=== PATIENT | male | born 1990 | race Caucasian/White ===

== ENCOUNTER 2017-10-26 13:23 | Inpatient (IN) ==
[2017-10-26] MEDS ORDERED: 0.9 % Sodium Chloride 1,000 ML IVC ONE (14:07)
[2017-10-26] MEDS ORDERED: Hyoscyamine SL 0.125 MG TAB.SUBL SL STA (14:08)
--- NOTE | 2017-10-26 14:19 | Emergency Department Note ---
Disposition Clinical Impression: Pancreatitis Qualifiers: Chronicity: acute Pancreatitis type: other Acute pancreatitis complication: no infection or necrosis Qualified Code(s): K85.80 - Other acute pancreatitis without necrosis or infection Disposition: Admitted As Inpatient Referrals: NONE,PCP [Primary Care Provider] - Forms: ED Satisfaction Letter, Work/School Release Time of Disposition: 16:36 Abdominal Pain HPI - General Chief Complaint: ED Abdominal Pain Stated Complaint: abd pain/NV Time Seen by Provider: 10/26/17 13:50 Source: patient Nursing Notes Reviewed: Yes Vital Signs Reviewed: Yes - History of Present Illness HPI Narrative: History of present illness: 27-year-old male history of bipolar disorder who presents with abdominal cramping going from the primary medical to the epigastric area with nausea and vomiting since last night. Was seen at [facility] yesterday this at the [facility] and sent him home. Having persistent symptoms here for further evaluation. Denies diarrhea or dysuria. Denies fever or chills. Denies shortness of breath or chest pain. Denies ill contacts exotic food or travel. No medication changes. WE ARE Obtaining release of information from Pain Scale: 10 - Related Data Allergies Allergy/AdvReac Type Severity Reaction Status Date / Time Penicillins Allergy Hives Verified 10/26/17 13:41 All systems ED: reviewed and negative except as stated. Gastrointestinal: Reports: abdominal pain, nausea, vomiting Abdominal Pain PMH - Past Medical History Medical history: Reports: no medical history Male Surgical History: Reports: appendectomy, Tonsillectomy Psychiatric history: Reports: anxiety, bipolar, depression, PTSD, prior suicide attempt, previous psychiatric hospitalization - Social History Smoking status: Former smoker Alcohol use: Reports: none Drug use: Reports: none Physical Exam - General Limitations: no limitations General appearance: alert, in distress - Head Head exam: atraumatic, normocephalic - Eye Eye exam: Present: normal appearance, PERRL, EOMI - ENT ENT exam: normal exam, normal oropharynx - Neck Neck exam: Present: normal inspection, full ROM - Chest Chest inspection: Present: normal inspection, symmetric chest wall rise - Respiratory Respiratory exam: Present: normal lung sounds bilaterally - Cardiovascular Cardiovascular exam: Present: regular rate, normal rhythm - Abdominal Exam Abdominal exam: Present: soft, Non-Tender - Extremities Exam Extremities exam: Present: normal inspection, full ROM - Expanded Lower Extremity Exam Neurovascular/Tendon exam: Present: normal capillary refill Gait: observed and normal - Back Exam Back exam: Present: normal inspection, full ROM - Neurological Exam Neurological exam: Present: alert, oriented X3 - Psychiatric Psychiatric exam: Present: normal affect, normal mood Course - Reevaluation(s) Reevaluation #1: Patient appears to have nausea vomiting one small bowel movement abdominal examination is surgically benign. Patient getting IV normal saline subungual Levsin IV Zofran. We will check on his last ED visit [facility]. Disposition pending. Time: 14:21 Reevaluation #2: I have reviewed the information from [facility] ED visit. She was discharged home without incident lab values were within normal limits no imaging was performed. She getting a noncontrast abdominal pelvic CT and received 1 mg parenteral Dilaudid and Zofran. Disposition pending. Time: 15:39 Reevaluation #3: Workup has been completed. Abdominal pelvic CT without contrast read by radiology as acute pancreatitis with extensive inflammation in the peripancreatic area but no pseudocyst formation. Patient and family members present so informed. Hospitalist has been paged admission anticipated disposition pending Time: 16:35 - Consultations Consultation #1: Discussed case with the hospitalist Dr. CALVILLO, patient' accepted for admission in stable condition Time: 16:36 Vital Signs Temperature 98 F 10/26/17 13:42 Pulse Rate 51 10/26/17 13:42 Respiratory Rate 20 10/26/17 13:42 Blood Pressure 152/91 10/26/17 13:42 O2 Sat by Pulse Oximetry 97 10/26/17 13:42 Temperature 98 F 10/26/17 13:42 Pulse Rate 51 10/26/17 13:42 Respiratory Rate 20 10/26/17 13:42 Blood Pressure 152/91 10/26/17 13:42 O2 Sat by Pulse Oximetry 97 10/26/17 13:42 Oxygen Delivery Oxygen Delivery Room Air Abdominal Pain - Lab Data Result diagrams: 10/26/17 14:28 10/26/17 14:28 Lab Results 10/26/17 10/26/17 Range/Units 14:28 14:28 WBC 12.6 H (4.3-11.1) K/mcL RBC 5.50 (4.19-5.50) M/mcL Hgb 16.6 (12.9-16.9) g/dL Hct 48.7 (37.5-50.1) % MCV 88.5 (83.0-100.0) fL MCH 30.2 (28.0-33.3) pg MCHC 34.1 (31.6-35.5) g/dL RDW 12.8 (11.5-14.5) % Plt Count 249 (140-400) K/mcL MPV 9.9 (9.4-12.4) fL Immature Gran % 0.2 (0-4) % Seg Neutrophils % 83.8 % Lymphocytes % 5.3 % Monocytes % 10.3 % Eosinophils % 0.2 % Basophils % 0.2 % Neutrophils # 10.5 H (1.6-8.9) K/mcL Lymphocytes # 0.7 (0.6-4.6) K/mcL Monocytes # 1.3 (0.0-1.3) K/mcL Eosinophils # 0.0 (0.0-0.6) K/mcL Basophils # 0.0 (0.0-0.2) K/mcL Sodium 139 (136-145) mEq/L Potassium 4.0 (3.5-5.1) mEq/L Chloride 105 (98-107) mEq/L Carbon Dioxide 27 (23-29) mEq/L BUN 9 (6-20) mg/dL Creatinine 0.91 (0.70-1.30) mg/dL Est GFR ( Amer) > 60 (> 60) Est GFR (Non-Af Amer) > 60 (> 60) BUN/Creatinine Ratio 10 (6-26) Glucose 127 H (70-105) mg/dL Calculated Osmolality 288 (280-300) Calcium 9.2 (8.6-10.3) mg/dL
[2017-10-26 14:43] LABS: Basophils % 0.2 %; Eosinophils % 0.2 %; Hematocrit 48.7 % (37.5-50.1); Hemoglobin 16.6 g/dL (12.9-16.9); Immature Granulocytes % 0.2 % (0-4); Lymphocytes # 0.7 K/mcL (0.6-4.6); Lymphocytes % 5.3 %; Mean Corpuscular HGB Conc 34.1 g/dL (31.6-35.5); Mean Corpuscular Hemoglobin 30.2 pg (28.0-33.3); Mean Corpuscular Volume 88.5 fL (83.0-100.0); Mean Platelet Volume 9.9 fL (9.4-12.4); Monocytes # 1.3 K/mcL (0.0-1.3); Monocytes % 10.3 %; Neutrophils # 10.5 K/mcL (1.6-8.9); Platelet Count 249 K/mcL (140-400); Red Cell Distribution Width 12.8 % (11.5-14.5); Segmented Neutrophils % 83.8 %
[2017-10-26 14:51] LABS: BUN/Creatinine Ratio 10 (6-26); Blood Urea Nitrogen 9 mg/dL (6-20); Calcium 9.2 mg/dL (8.6-10.3); Carbon Dioxide 27 mEq/L (23-29); Chloride 105 mEq/L (98-107); Glucose 127 mg/dL (70-105); Osmolality,Calculated 288 (280-300); Sodium 139 mEq/L (136-145); eGFR For African Americans > 60 (> 60); eGFR For Non-African Americans > 60 (> 60)
[2017-10-26] MEDS ORDERED: *HR* HYDROmorphone (PF) 1 MG/ML SYRINGE IVP ONE ×3 (15:14→19:45)
[2017-10-26] MEDS ORDERED: Ondansetron 4 MG/2 ML VIAL IVP ONE (15:14)
[2017-10-26 17:28] LABS: Lipase > 1800 Units/L (11-82)
[2017-10-26] MEDS ORDERED: *HR* HYDROmorphone (PF) 1 MG/ML SYRINGE IVP PRN (19:44)
[2017-10-26] MEDS ORDERED: Ondansetron 4 MG/2 ML VIAL IVP PRN (19:44)
[2017-10-26] MEDS ORDERED: Naloxone 0.4 MG/ML INJ IVP PRN (19:44)
[2017-10-26] MEDS ORDERED: 0.9 % Sodium Chloride 1,000 ML IVC SCH (20:00)
--- NOTE | 2017-10-26 20:00 | Internal Med History&Physical ---
<Carlin Yao - Last Filed: 10/26/17 19:55> Date of Encounter: 10/26/17 Time of Encounter: 19:55 Assessment and Plan (1) Pancreatitis Current visit: Yes Status: Acute Presents today with N/V, and abdominal pain. Lipase greater than 3x normal upper limits. CT abdomen revealed a severely inflamed pancreas. He is hemodynamically stable. Denies any ETOH abuse, no prior h/o cholelithiasis, no autoimmune disorders, liver enzymes unremarkable. He is being admitted to inpatient with acute pancreatitis. -GI consult-order placed, no GI service for consult until Saturday. Patient has risks for hereditary pancreatitis. -check triglycerides, and lipase in the am -IVF 0.9% NS at 150ml/hr -RUQ US -CBCD, CMP in the am -Continuous tele, and Spo2 monitoring -NPO -pain management with Morphine 2mg Q2hrs PRN Qualifiers: Chronicity: acute Pancreatitis type: other Acute pancreatitis complication: no infection or necrosis Qualified Code(s): K85.80 - Other acute pancreatitis without necrosis or infection (2) Sinus bradycardia Current visit: Yes Status: Acute Sinus bradycardia of unknown etiology. He states that his pulse is always low in the 50's. He is asymptomatic and hemodynamically stable. He is to remain on telemetry monitoring. (3) DVT prophylaxis Current visit: Yes Status: Acute EPCD's Internal Medicine - H&P: HPI Chief complaint: N/V and abdominal pain Admitted From: Home Plans for Post Hospital Care: Home History of present illness: Mr. Herrera is a 27 year old male with only anxiety, bipolar and depression. Who presents to [facility] today with severe abdominal pain and N/V. He denies any ETOH abuse, or illicit drug use. He reports that the abdominal pain and vomiting began last night. The patient reports that he was at [facility] yesterday and was diagnosed with viral gastroenteritis and sent home. His symptoms have persisted and worsened from yesterday evening until this time of arrival to the ED today. He denies any fevers, chills, shortness of breath, chest pain, diarrhea or back pain. He denies any ill contacts, exotic food or travel. Workup in the ED found leukocytosis at 12.6 and an elevated lipase of 1800. CT of abdomen was obtained and found severe inflammation of the pancreas. Past Med Surg Social Fam HX - Past Medical History Medical history: no medical history Psychiatric history: anxiety, bipolar, depression, PTSD, prior suicide attempt, previous psychiatric hospitalization - Social History Smoking Status: Former smoker Smokeless Tobacco Status: No Alcohol use: none Drug use: none - Family History Mother Hx Family GI Disorders: Yes (pancreatitis) - Additional Family History Additional family history: Noncontributory Internal Medicine - H&P: Meds 3 Allergy/AdvReac Type Severity Reaction Status Date / Time Penicillins Allergy Hives Verified 10/26/17 13:41 All Systems PM: A 10-system review of systems was performed and is negative for pertinent findings except as documented above in the HPI. - Constitutional Constitutional: as per HPI - Cardiovascular Cardiovascular ROS IM: no chest pain, no diaphoresis, no dyspnea, no lightheadedness, no palpitations, no syncope - Respiratory Respiratory: no cough, no dyspnea, no wheezing, no excessive phlegm production - Gastrointestinal Gastrointestinal: as per HPI - Integumentary Integumentary IM: no rash, no unusual bruising - Neurological Neurological ROS: no confusion, no convulsions, no focal weakness, no numbness, no tingling, no tremor(s) - Psychiatric Psychiatric: anxiety - Constitutional Vitals: Temp Pulse Resp BP Pulse Ox 98 F 50 14 147/89 98 10/26/17 13:42 10/26/17 19:00 10/26/17 19:49 10/26/17 19:49 10/26/17 19:00 General appearance: Present: cooperative, mild distress, A&O X 3, answers questions appropriately - Head Head exam: Present: atraumatic, normocephalic - Neck Neck exam general surgery: Present: supple, trachea midline. Absent: lymphadenopathy - Respiratory Respiratory exam: Present: CTAB. Absent: accessory muscle use, rales, rhonchi, wheezes - Cardiovascular Cardiovascular exam: Present: +S1, +S2. Absent: bradycardia, systolic murmur - GI/Abdominal GI/Abdominal exam: Present: tenderness. Absent: firm, guarding, rebound - Extremities Exam Extremities exam: Present: warm, radial pulses palpable and symmetrical. Absent : calf tenderness, cyanotic, pedal edema - Neurological Exam Neurological exam: Present: normal gait, oriented X3. Absent: facial droop, speech deficit - Skin Skin exam: Present: dry, intact Internal Med - H&P Results - Labs CBC & Chem 7: 10/26/17 14:28 10/26/17 14:28 - Diagnostic Studies CT scan - abdomen Status: image reviewed by me Additional comments: Acute appendicitis with no pseudocyst or abscess. Severe inflammatory changes are seen around the pancreas in the upper abdomen. <Zelda Fallon - Last Filed: 10/26/17 20:55> Date of Encounter: 10/26/17 Internal Medicine - H&P: HPI History of present illness: Mr. Herrera is a 27 year old male All Systems PM: A 10-system review of systems was performed and is negative for pertinent findings except as documented above in the HPI. - Constitutional Vitals: Temp Pulse Resp BP Pulse Ox 98.4 F 53 14 143/92 94 10/26/17 20:31 10/26/17 20:31 10/26/17 20:31 10/26/17 20:31 10/26/17 20:31 Internal Med - H&P Results - Labs CBC & Chem 7: 10/26/17 14:28 10/26/17 14:28 - Attending Attestation I have personally performed a face to face evaluation on this patient. I have reviewed and agree with the care plan. History and Exam by me shows: 27 yo male with abdo pain along epigastric region, RUQ, Rmiddle quad pain, radiation to the back, worse with food, associated n/v, no diarrhea Denies alcohol or triglycerides IMPRESSION: Acute appendicitis with no pseudocyst or abscess. Severe inflammatory changes are seen around the pancreas in the upper abdomen. D/ / Bay Carmichael MD / Bay Carmichael MD Interpreting Provider: Bay Carmichael MD NDUM: Speech recognition error in the impression. The impression should read acute pancreatitis. A/P Acute pancreatitis - LFT wnl, does not sound like gallstones but will check RUQ US - denies alcohol - check triglyceride - IVF, IV pain med - consult GI, if all negative, consider work up for hereditary pancreatitis. Hx of early age pancreatitis in mother
[2017-10-26] MEDS: 0.9 % Sodium Chloride 1,000 ML IVC SCH (20:53)
[2017-10-26] MEDS: *HR* Morphine 2 MG/ML SYRINGE IVP PRN (21:38)
[2017-10-27] MEDS: *HR* Morphine 2 MG/ML SYRINGE IVP PRN ×8 (01:18→23:22)
[2017-10-27] MEDS: 0.9 % Sodium Chloride 1,000 ML IVC SCH ×3 (03:43→19:51)
[2017-10-27 06:39] LABS: Basophils % 0.1 %; Eosinophils # 0.1 K/mcL (0.0-0.6); Eosinophils % 0.6 %; Hematocrit 49.2 % (37.5-50.1); Hemoglobin 16.2 g/dL (12.9-16.9); Immature Granulocytes % 0.3 % (0-4); Lymphocytes # 1.2 K/mcL (0.6-4.6); Mean Corpuscular HGB Conc 32.9 g/dL (31.6-35.5); Mean Corpuscular Volume 91.1 fL (83.0-100.0); Mean Platelet Volume 10.2 fL (9.4-12.4); Monocytes # 1.6 K/mcL (0.0-1.3); Monocytes % 10.7 %; Platelet Count 247 K/mcL (140-400); Red Cell Distribution Width 13.1 % (11.5-14.5); Segmented Neutrophils % 80.3 %
[2017-10-27 09:19] LABS: BUN/Creatinine Ratio 9 (6-26); Blood Urea Nitrogen 8 mg/dL (6-20); Calcium 8.5 mg/dL (8.6-10.3); Carbon Dioxide 29 mEq/L (23-29); Chloride 105 mEq/L (98-107); Glucose 100 mg/dL (70-105); Lipase > 1800 Units/L (11-82); Osmolality,Calculated 290 (280-300); Potassium 4.1 mEq/L (3.5-5.1); Sodium 141 mEq/L (136-145); eGFR For African Americans > 60 (> 60); eGFR For Non-African Americans > 60 (> 60)
[2017-10-27] MEDS: Ondansetron 4 MG/2 ML VIAL IVP SCH ×3 (15:11→23:22)
--- NOTE | 2017-10-27 16:04 | Internal Med Progress Note ---
Date of Encounter: 10/27/17 Time of Encounter: 16:01 - Assessment and plan (1) Pancreatitis Current Visit: Yes Status: Acute Assessment and plan: Presents today with N/V, and abdominal pain. Lipase greater than 3x normal upper limits. CT abdomen revealed a severely inflamed pancreas. He is hemodynamically stable. Denies any ETOH abuse, no prior h/o cholelithiasis, no autoimmune disorders, liver enzymes, triglycerides unremarkable. Cont aggressive IV fluids, NPO. IV pain and nausea control. GI consulted. ABD US pending Qualifiers: Chronicity: acute Pancreatitis type: other Acute pancreatitis complication: no infection or necrosis Qualified Code(s): K85.80 - Other acute pancreatitis without necrosis or infection (2) DVT prophylaxis Current Visit: Yes Status: Acute Assessment and plan: lovenox - Subjective Interval history: Seen and examined at bedside, patient is new to me. Information obtained from chart review and patient report. Patient still very uncomfortable and complains of abdominal pain however slightly improved from yesterday. Still with intermittent nausea, no emesis. - Constitutional Vitals: Temp Pulse Resp BP Pulse Ox 98.1 F 86 16 113/75 92 10/27/17 15:28 10/27/17 15:28 10/27/17 15:28 10/27/17 15:28 10/27/17 15:28 General appearance: Present: cooperative, mild distress, A&O X 3, answers questions appropriately - Head Head exam: Present: atraumatic, normocephalic - Eye Eye exam: Present: PERRL, conjuntiva pink, sclera anicteric Pupils: Present: PERRL - Neck Neck exam general surgery: Present: supple, trachea midline. Absent: lymphadenopathy - Respiratory Respiratory exam: Present: CTAB. Absent: accessory muscle use, rales, rhonchi, wheezes - Cardiovascular Cardiovascular exam: Present: RRR, +S1, +S2. Absent: diastolic murmur, gallop, rubs, systolic murmur - GI/Abdominal GI/Abdominal exam: Present: normal bowel sounds, soft, tenderness, no peritoneal signs. Absent: distended - Extremities Exam Extremities exam: Present: warm, radial pulses palpable and symmetrical. Absent : calf tenderness, cyanotic, pedal edema - Neurological Exam Neurological exam: Present: CN II-XII intact, oriented X3, no focal deficits. Absent: pronater drift, facial droop, speech deficit - Skin Skin exam: Present: dry, intact Internal Medicine: Result - Labs CBC & Chem 7: 10/27/17 05:47 10/27/17 05:47 Consult Discharge Plan - Plan Referrals: NONE,PCP [Primary Care Provider] -
[2017-10-28] MEDS: *HR* Morphine 2 MG/ML SYRINGE IVP PRN ×7 (02:27→23:56)
[2017-10-28] MEDS: 0.9 % Sodium Chloride 1,000 ML IVC SCH ×3 (02:32→20:29)
[2017-10-28] MEDS: Ondansetron 4 MG/2 ML VIAL IVP SCH ×5 (03:47→20:25)
[2017-10-28] MEDS: Acetaminophen 325 MG TABLET PO PRN (03:47)
[2017-10-28 05:01] LABS: Hematocrit 44.1 % (37.5-50.1); Mean Corpuscular HGB Conc 32.9 g/dL (31.6-35.5); Mean Corpuscular Hemoglobin 29.8 pg (28.0-33.3); Mean Corpuscular Volume 90.7 fL (83.0-100.0); Mean Platelet Volume 10.6 fL (9.4-12.4); Platelet Count 215 K/mcL (140-400); Red Blood Count 4.86 M/mcL (4.19-5.50)
[2017-10-28] MEDS: *HR* Enoxaparin 40 MG/0.4 ML SYRINGE SQ SCH (05:07)
[2017-10-28 05:08] LABS: Hemoglobin 14.5 g/dL (12.9-16.9)
[2017-10-28 05:19] LABS: BUN/Creatinine Ratio 9 (6-26); Blood Urea Nitrogen 8 mg/dL (6-20); Calcium 7.9 mg/dL (8.6-10.3); Carbon Dioxide 28 mEq/L (23-29); Chloride 104 mEq/L (98-107); Glucose 99 mg/dL (70-105); Lipase 493 Units/L (11-82); Osmolality,Calculated 286 (280-300); Potassium 3.5 mEq/L (3.5-5.1); Sodium 139 mEq/L (136-145); eGFR For African Americans > 60 (> 60); eGFR For Non-African Americans > 60 (> 60)
[2017-10-28 12:38] LABS: VBG Ionized Calcium 1.05 mmol/L (1.15-1.35)
[2017-10-28 12:49] LABS: Albumin 3.3 g/dL (3.5-5.7); Albumin/Globulin Ratio 1.4 (1.1-2.2); Bilirubin,Direct 0.5 mg/dL (0.0-0.2); Bilirubin,Indirect 0.6 mg/dL (0.0-1.2); Bilirubin,Total 1.1 mg/dL (0.3-1.0); Globulin 2.4 g/dL (2.4-3.5); Total Protein 5.7 g/dL (6.4-8.9)
--- NOTE | 2017-10-28 13:20 | Gastroenterology Consult Note ---
<Kristi Ribera - Last Filed: 10/28/17 13:15> Date of Encounter: 10/28/17 Time of Encounter: 11:30 - Assessment and plan (1) Pancreatitis Current Visit: Yes Status: Acute Assessment and plan: 27 year old male who presents with acute pancreatitis. CT negative for choledolithiasis. He denies ETOH or drug abuse. Triglycerides are normal. Will order jossy, IGG4, ionized calcium. Continue IVF, will advance diet when tolerated , he has meds for pain and nausea control. Qualifiers: Chronicity: acute Pancreatitis type: other Acute pancreatitis complication: no infection or necrosis Qualified Code(s): K85.80 - Other acute pancreatitis without necrosis or infection - Time Spent With Patient Total time spent is greater than 50% in coordination of care (as documented) at patient's floor/unit and/or counseling patient: GI History of Present Illness - Data of Consult Patient: new to practice Consult date: 10/28/17 Requesting Physician: Nelson Ortega MD - Consult Narrative Reason for consult: pancreatitis History of present illness: Mr. Herrera is a 27 year old male with only anxiety, bipolar and depression. He presented with severe abdominal pain and N/V for 3 days before presentation. He denies any previous episodes of pancreatitis or similiar pain. He denies any ETOH abuse, or illicit drug use. He denies any fevers, chills, shortness of breath, chest pain. He reports diarrhea this morning that "looked like infection ", he denies any bloody, black or tarry stools. Labs revealed a WBC of 12.6 and an elevated lipase of 1800, now down to 493. Triglycerides 84, . CT of abdomen showed severe inflammation of the pancreas, no choledolithiasis. Colonoscopy: denies EGD: denies NSAIDS/ASA: denies Anticoagulants: lovenox Past Med Surg Social Fam HX - Past Medical History Medical history: no medical history Psychiatric history: anxiety, bipolar, depression, PTSD, prior suicide attempt, previous psychiatric hospitalization - Past Surgical History Surgical History: appendectomy - Social History Smoking Status: Former smoker Smokeless Tobacco Status: No Alcohol use: none Drug use: none - Family History Mother Hx Family GI Disorders: Yes (pancreatitis) Hx Family Autoimmune Disorders: Yes (Mother-sarcoidosis) Father Living Status: Still Living Hx Family Cancer: Yes (colon, lung, throat, liver) Review of Systems: GI: as per [facility] GENERAL: denies fever, has some chills EYES: denies yellow discoloration ENT: denies pain with swallowing or difficulty swallowing CARDIO: denies chest pain, palpitations RESP: No Shortness of breath with exertion : denies change in color of urine NEURO: denies any weakness HEME: Denies any bruising MS: denies joint pain, joint swelling or back pain. DERM: denies rash or itching PSYCH: Denies history of anxiety or depression - Constitutional Vitals: Temp Pulse Resp BP Pulse Ox 98.0 F 87 20 109/76 94 10/28/17 11:38 10/28/17 11:38 10/28/17 11:38 10/28/17 11:38 10/28/17 11:38 Exam: CONSTITUTIONAL:~alert, no acute distress.~HEAD:~normocephalic.~EYES:~no jaundice.~NECK:~no obvious swelling.~HEART:~regular rate and rhythm, no murmurs. ~LUNGS:~bilateral good air entry.~ABDOMEN:~non distended, soft, tender, no masses palpable, no organomegaly.~RECTAL EXAM:~Deferred.~EXTREMITIES:~no clubbing, cyanosis or edema.~SKIN:~no stigmata of chronic liver disease.~ NEUROLOGIC:~no obvious focal defect.~~~~ Results - Labs CBC & Chem 7: 10/28/17 04:21 10/28/17 04:21 Labs: Last Result Calcium 7.9 mg/dL (8.6-10.3) L 10/28/17 04:21 Triglycerides 84 mg/dL (< 150) 10/27/17 05:47 Entire Visit Hgb 14.5 g/dL (12.9-16.9) D 10/28/17 04:21 Hct 44.1 % (37.5-50.1) 10/28/17 04:21 Total Bilirubin 1.1 mg/dL (0.3-1.0) H 10/28/17 12:23 AST 41 Units/L (13-39) H 10/28/17 12:23 ALT 143 Units/L (7-52) H 10/28/17 12:23 Lipase 493 Units/L (11-82) H 10/28/17 04:21 - Impressions Impressions Abdomen Ultrasound 10/28/17 10:30 IMPRESSION: 1. Punctate nonmobile echogenic focus anterior gallbladder which may represent tiny polyp or adenomyomatosis. 2. Punctate mobile echogenic focus posterior gallbladder suggesting possible small stone. 3. Minimal right perinephric and perihepatic free fluid. D/ / Jessie Dennison MD / Jessie Dennison MD Interpreting Provider: Jessie Dennison MD Consult Discharge Plan - Plan Referrals: NONE,PCP [Primary Care Provider] - <Nina Lubin - Last Filed: 10/28/17 17:37> Date of Encounter: 10/28/17 Time of Encounter: 17:25 - Time Spent With Patient Total time spent is greater than 50% in coordination of care (as documented) at patient's floor/unit and/or counseling patient: GI History of Present Illness - Data of Consult Requesting Physician: Nelson Ortega MD - Consult Narrative History of present illness: Mr. Herrera is a 27 year old male - Constitutional Vitals: Temp Pulse Resp BP Pulse Ox 98.7 F 85 20 132/81 94 10/28/17 15:32 10/28/17 15:32 10/28/17 15:32 10/28/17 15:32 10/28/17 15:32 Results - Labs CBC & Chem 7: 10/28/17 04:21 10/28/17 04:21 Labs: Last Result Calcium 7.9 mg/dL (8.6-10.3) L 10/28/17 04:21 Triglycerides 84 mg/dL (< 150) 10/27/17 05:47 Entire Visit Hgb 14.5 g/dL (12.9-16.9) D 10/28/17 04:21 Hct 44.1 % (37.5-50.1) 10/28/17 04:21 Total Bilirubin 1.1 mg/dL (0.3-1.0) H 10/28/17 12:23 AST 41 Units/L (13-39) H 10/28/17 12:23 ALT 143 Units/L (7-52) H 10/28/17 12:23 Lipase 493 Units/L (11-82) H 10/28/17 04:21 - Impressions Impressions Abdomen Ultrasound 10/28/17 10:30 IMPRESSION: 1. Punctate nonmobile echogenic focus anterior gallbladder which may represent tiny polyp or adenomyomatosis. 2. Punctate mobile echogenic focus posterior gallbladder suggesting possible small stone. 3. Minimal right perinephric and perihepatic free fluid. D/ / Jessie Dennison MD / Jessie Dennison MD Interpreting Provider: Jessie Dennison MD - Attending Attestation I examined this patient and my medical decision-making was reviewed with the Resident Physician. I agree with the documented findings, disposition and treatment plan as described except to the extent set forth below. Patient with acute pancreatitis could be Gallstone related but rule out other etiology. Does has family history of pancreatitis in her mom who has sarcoidosis. We will check IgG4 to rule out autoimmune pancreatitis. Cont IV fluid and pain management.
--- NOTE | 2017-10-28 17:50 | Internal Med Progress Note ---
Date of Encounter: 10/28/17 Time of Encounter: 09:15 - Assessment and plan (1) Pancreatitis Current Visit: Yes Status: Acute Assessment and plan: Presented to ED with N/V, and abdominal pain. Lipase greater than 3x normal upper limits, has decreased to [address] abdomen revealed a severely inflamed pancreas. He is hemodynamically stable. Denies any ETOH abuse, no prior h/o cholelithiasis, no autoimmune disorders, liver enzymes, triglycerides unremarkable. Cont aggressive IV fluids, NPO. IV pain and nausea control. Abdominal ultrasound revealed punctate nonmobile echogenic focus in the anterior gallbladder which may represent tiny polyp. Dental myelomatosis. Also punctate mobile echogenic focus posterior gallbladder suggesting possible small stone. There is minimal right perinephric and perihepatic free fluid. GI following. Recommend advance diet as tolerated and continue medication for pain and nausea. Continue to hydrate with IV fluids Continue to monitor labs GI is following, I appreciate their recommendations and consultation. They have ordered a MAKENZIE, IgGG 4, ionized calcium Qualifiers: Chronicity: acute Pancreatitis type: other Acute pancreatitis complication: no infection or necrosis Qualified Code(s): K85.80 - Other acute pancreatitis without necrosis or infection (2) Sinus bradycardia Current Visit: Yes Status: Acute Assessment and plan: Resolved. (3) DVT prophylaxis Current Visit: Yes Status: Resolved - Time Spent With Patient Lovenox subcutaneous less than 15 minutes - Subjective Interval history: Patient was seen and assessed at 9:15 AM. Female lying in bed with him. Reports that pain has improved, he was feeling better. He denies chest pain or shortness of breath. No headache or blurred vision. Rates abdominal pain possibly 5/10. Patient reports feeling hungry, will start clear liquids and advance diet as tolerated. - Constitutional Vitals: Temp Pulse Resp BP Pulse Ox 98.7 F 85 20 132/81 94 10/28/17 15:32 10/28/17 15:32 10/28/17 15:32 10/28/17 15:32 10/28/17 15:32 General appearance: Present: cooperative, mild distress, A&O X 3, pleasant, no acute distress, answers questions appropriately - Head Head exam: Present: atraumatic, normal inspection, normocephalic - Eye Eye exam: Present: normal appearance, conjuntiva pink, sclera anicteric - Neck Neck exam general surgery: Present: supple, trachea midline. Absent: lymphadenopathy - Respiratory Respiratory exam: Present: CTAB. Absent: accessory muscle use, rales, rhonchi, wheezes - Cardiovascular Cardiovascular exam: Present: RRR, +S1, +S2. Absent: diastolic murmur, gallop, rubs, systolic murmur - GI/Abdominal GI/Abdominal exam: Present: normal bowel sounds, soft, tenderness. Absent: distended, hepatomegaly - Extremities Exam Extremities exam: Present: normal capillary refill, normal inspection, warm, radial pulses palpable and symmetrical. Absent: calf tenderness, cyanotic, pedal edema - Neurological Exam Neurological exam: Present: alert, oriented X3, no focal deficits. Absent: altered, facial droop, speech deficit - Skin Skin exam: Present: dry, intact, normal color, warm. Absent: rash Internal Medicine: Result - Labs CBC & Chem 7: 10/28/17 04:21 10/28/17 04:21 Labs: Short CBC 10/28/17 Range/Units 04:21 WBC 11.8 H (4.3-11.1) K/mcL Hgb 14.5 D (12.9-16.9) g/dL Hct 44.1 (37.5-50.1) % Plt Count 215 (140-400) K/mcL BMP 10/28/17 04:21 Sodium 139 Potassium 3.5 Chloride 104 Carbon Dioxide 28 BUN 8 Creatinine 0.88 Glucose 99 Calcium 7.9 L Liver Function 10/28/17 Range/Units 12:23 Total Bilirubin 1.1 H (0.3-1.0) mg/dL Direct Bilirubin 0.5 H (0.0-0.2) mg/dL AST 41 H (13-39) Units/L ALT 143 H (7-52) Units/L Alkaline Phosphatase 69 (34-104) Units/L Albumin 3.3 L (3.5-5.7) g/dL - Impressions Impressions Abdomen Ultrasound 10/28/17 10:30 IMPRESSION: 1. Punctate nonmobile echogenic focus anterior gallbladder which may represent tiny polyp or adenomyomatosis. 2. Punctate mobile echogenic focus posterior gallbladder suggesting possible small stone. 3. Minimal right perinephric and perihepatic free fluid. D/ / Jessie Dennison MD / Jessie Dennison MD Interpreting Provider: Jessie Dennison MD Consult Discharge Plan - Plan Referrals: NONE,PCP [Primary Care Provider] -
[2017-10-29] MEDS: Ondansetron 4 MG/2 ML VIAL IVP SCH ×7 (00:04→23:17)
[2017-10-29] MEDS: 0.9 % Sodium Chloride 1,000 ML IVC SCH ×4 (03:35→23:22)
[2017-10-29] MEDS: *HR* Enoxaparin 40 MG/0.4 ML SYRINGE SQ SCH (05:11)
[2017-10-29] MEDS: *HR* Morphine 2 MG/ML SYRINGE IVP PRN ×4 (05:11→19:15)
[2017-10-29 05:49] LABS: Basophils # 0.1 K/mcL (0.0-0.2); Basophils % 0.5 %; Eosinophils # 0.4 K/mcL (0.0-0.6); Eosinophils % 3.1 %; Hematocrit 41.7 % (37.5-50.1); Hemoglobin 13.8 g/dL (12.9-16.9); Immature Granulocytes % 0.4 % (0-4); Lymphocytes # 1.8 K/mcL (0.6-4.6); Lymphocytes % 15.2 %; Mean Corpuscular HGB Conc 33.1 g/dL (31.6-35.5); Mean Corpuscular Hemoglobin 30.1 pg (28.0-33.3); Mean Corpuscular Volume 90.8 fL (83.0-100.0); Mean Platelet Volume 10.5 fL (9.4-12.4); Monocytes # 1.7 K/mcL (0.0-1.3); Monocytes % 13.9 %; Platelet Count 194 K/mcL (140-400); Red Blood Count 4.59 M/mcL (4.19-5.50); Red Cell Distribution Width 12.7 % (11.5-14.5); Segmented Neutrophils % 66.9 %
[2017-10-29 06:10] LABS: BUN/Creatinine Ratio 7 (6-26); Blood Urea Nitrogen 5 mg/dL (6-20); Calcium 7.9 mg/dL (8.6-10.3); Carbon Dioxide 27 mEq/L (23-29); Chloride 102 mEq/L (98-107); Glucose 91 mg/dL (70-105); Osmolality,Calculated 283 (280-300); Potassium 3.1 mEq/L (3.5-5.1); Sodium 138 mEq/L (136-145); eGFR For African Americans > 60 (> 60); eGFR For Non-African Americans > 60 (> 60)
[2017-10-29 12:35] LABS: Alanine Aminotransferase 92 Units/L (7-52); Aspartate Amino Transferase 23 Units/L (13-39)
--- NOTE | 2017-10-29 14:27 | Discharge Summary ---
Date of Encounter: 10/29/17 Time of Encounter: 11:20 - Discharge Diagnosis (1) Pancreatitis Priority: Primary Status: Acute Comments: Presented to ED with N/V, and abdominal pain. Lipase greater than 3x normal upper limits, has decreased to [address] abdomen revealed a severely inflamed pancreas. He is hemodynamically stable. Denies any ETOH abuse, no prior h/o cholelithiasis, no autoimmune disorders, liver enzymes, triglycerides unremarkable. Abdominal ultrasound revealed punctate nonmobile echogenic focus in the anterior gallbladder which may represent tiny polyp Also punctate mobile echogenic focus posterior gallbladder suggesting possible small stone. There is minimal right perinephric and perihepatic free fluid. He has been evaluated by GI, I spoke with GI ASSISTANT [employer]ACH by phone, no further testing is warranted at this time. Recommend following in the clinic after discharge. They have ordered send out labs to assess for any autoimmune disease and will follow up with him in the office. Patient is feeling significantly better today. He has been up in the room and has had a shower. Clinically, he appears improved since yesterday. Abdominal pain is improving and he reports that he has had a bowel movement. Abdomen remains tender in mid abdomen and right lower quadrant, however is better than yesterday. I have Deescalated his pain medication to morphine 1 mg every 6 hours. Lipase has returned to within normal limits. Transaminases were elevated, AST is within normal limits, ALT is significantly decreased from yesterday. Patient reports he is ready to go home. He is stable and appropriate for discharge. Qualifiers: Chronicity: acute Pancreatitis type: other Acute pancreatitis complication: no infection or necrosis Qualified Code(s): K85.80 - Other acute pancreatitis without necrosis or infection (2) Sinus bradycardia Priority: Secondary Status: Resolved Comments: Patient in normal sinus rhythm. Rate in the 80s during auscultation. (3) DVT prophylaxis Priority: Secondary Status: Resolved Comments: Lovenox subcutaneous. Patient was ambulatory in the room. (4) Leukocytosis Priority: Secondary Status: Acute Comments: Mild leukocytosis since arrival. White count 12.0 today. Secondary to pancreatitis. He has remained afebrile for over 24 hours and normotensive. SIRS criteria based on intermittent fever, tachycardia, and leukocytosis. Continue to monitor white count and vital signs. Qualifiers: Leukocytosis type: unspecified Qualified Code(s): D72.829 - Elevated white blood cell count, unspecified - Discharge Medications Home Medications: Buspirone HCl [Buspar] 15 mg PO BID 10/28/17 [History] Citalopram [CeleXA] 20 mg PO DAILY 10/28/17 [History] Ondansetron HCl [Zofran] 4 mg PO BID PRN 10/28/17 [History] Trazodone HCl 50 mg PO HS PRN 10/28/17 [History] carBAMazepine [Tegretol] 200 mg PO BID 10/28/17 [History] risperiDONE [Risperidone] 1 mg PO HS 10/28/17 [History] Allergies/Adverse Reactions: 3 Allergy/AdvReac Type Severity Reaction Status Date / Time Penicillins Allergy Hives Verified 10/28/17 13:59 Date of admission: 10/27/17 15:11 Primary care physician: PCP ERNIE Discharging clinician: Ivonne Brizuela Anticipated date of discharge: 10/29/17 - Patient Status Disposition: Home, Self-Care Condition: Good Functional capacity at discharge: independent ambulation Overall status at discharge: patient is progressing back to baseline - Discharge Instructions Follow Up With: NONE,PCP [Primary Care Provider] - Additional Instructions: Follow-up with her primary care provider in the next 7-10 days for a follow-up visit. Return to work after cleared by your primary care provider. Take your medications as directed. Return to normal activities as tolerated. Return to your normal diet as tolerated Return to the emergency department as needed for any other problems or concerns , or if your symptoms return or worsen. - Diet and Activity Activity: increase activity as tolerated Diet: advance to your usual diet Hospital course: Mr. Herrera is a 27 year old male - Time Spent with Patient Total time spent providing and/or coordinating discharge services: - Constitutional Vitals: Temp Pulse Resp BP Pulse Ox 98.0 F 92 18 115/74 92 10/29/17 12:06 10/29/17 12:06 10/29/17 12:06 10/29/17 12:06 10/29/17 12:06 General appearance: Present: cooperative, mild distress, A&O X 3, pleasant, no acute distress, answers questions appropriately - Head Head exam: Present: atraumatic, normal inspection, normocephalic - Eye Eye exam: Present: normal appearance, conjuntiva pink, sclera anicteric - Neck Neck exam general surgery: Present: supple, trachea midline. Absent: lymphadenopathy - Respiratory Respiratory exam: Present: CTAB. Absent: accessory muscle use, rales, rhonchi, wheezes - Cardiovascular Cardiovascular exam: Present: RRR, +S1, +S2. Absent: diastolic murmur, gallop, rubs, systolic murmur - GI/Abdominal GI/Abdominal exam: Present: normal bowel sounds, soft, tenderness. Absent: diminished bowel sounds, distended, hepatomegaly - Expanded GI/Abdominal Exam GI/Abdominal exam expanded: Present: tenderness at McBur[place]'s Point. Absent: Bhatia's sign - Extremities Exam Extremities exam: Present: normal capillary refill, normal inspection, warm, radial pulses palpable and symmetrical. Absent: calf tenderness, cyanotic, pedal edema - Neurological Exam Neurological exam: Present: alert, oriented X3, no focal deficits. Absent: facial droop, speech deficit - Skin Skin exam: Present: dry, intact, warm. Absent: rash
[2017-10-29] MEDS: Acetaminophen 325 MG TABLET PO PRN ×2 (16:12→21:07)
[2017-10-30] MEDS: *HR* Morphine 2 MG/ML SYRINGE IVP PRN ×2 (01:53→09:08)
[2017-10-30] MEDS: 0.9 % Sodium Chloride 1,000 ML IVC SCH (06:01)
[2017-10-30] MEDS: *HR* Enoxaparin 40 MG/0.4 ML SYRINGE SQ SCH (06:02)
[2017-10-30] MEDS: Ondansetron 4 MG/2 ML VIAL IVP SCH ×2 (06:03→12:39)
[2017-10-30 07:17] VITALS: BP 126/85
[2017-10-30 07:17] LABS: Basophils % 0.5 %; Eosinophils # 0.3 K/mcL (0.0-0.6); Hematocrit 38.2 % (37.5-50.1); Hemoglobin 12.6 g/dL (12.9-16.9); Immature Granulocytes % 0.4 % (0-4); Lymphocytes # 1.7 K/mcL (0.6-4.6); Lymphocytes % 20.4 %; Mean Corpuscular Hemoglobin 30.1 pg (28.0-33.3); Mean Corpuscular Volume 91.2 fL (83.0-100.0); Mean Platelet Volume 10.7 fL (9.4-12.4); Monocytes # 1.2 K/mcL (0.0-1.3); Monocytes % 14.7 %; Neutrophils # 4.9 K/mcL (1.6-8.9); Platelet Count 210 K/mcL (140-400); Red Blood Count 4.19 M/mcL (4.19-5.50); Red Cell Distribution Width 12.8 % (11.5-14.5)
[2017-10-30 07:46] LABS: Alanine Aminotransferase 128 Units/L (7-52); BUN/Creatinine Ratio 4 (6-26); Blood Urea Nitrogen 3 mg/dL (6-20); Carbon Dioxide 28 mEq/L (23-29); Chloride 104 mEq/L (98-107); Glucose 90 mg/dL (70-105); Osmolality,Calculated 280 (280-300); Potassium 3.2 mEq/L (3.5-5.1); Sodium 137 mEq/L (136-145); eGFR For African Americans > 60 (> 60); eGFR For Non-African Americans > 60 (> 60)
--- NOTE | 2017-10-30 11:52 | Internal Med Progress Note ---
Date of Encounter: 10/30/17 Time of Encounter: 11:40 - Assessment and plan (1) Pancreatitis Current Visit: Yes Status: Acute Assessment and plan: Presented to ED with N/V, and abdominal pain. Lipase greater than 3x normal upper limits on admission. CT abdomen revealed a severely inflamed pancreas. He is hemodynamically stable. Denies any ETOH abuse, no prior h/o cholelithiasis , no autoimmune disorders, liver enzymes, triglycerides unremarkable. Pt denies use of recreational drugs, however, does take several oral medications for anxiety/PTSD/bipolar d/o. Abdomen is soft and nontender today. Bowel sounds are present. Patient is tolerating regular diet well. He is eating ham sandwiches and chips. Abdominal ultrasound revealed punctate nonmobile echogenic focus in the anterior gallbladder which may represent tiny polyp. Dental myelomatosis. Also punctate mobile echogenic focus posterior gallbladder suggesting possible small stone. There is minimal right perinephric and perihepatic free fluid. Abdomen CT showed acute pancreatitis with no pseudocyst or abscess, severe changes are seen and around the pancreas and upper abdomen. GI evaluated pt, will follow up in the office. No further inpatient testing required. Qualifiers: Chronicity: acute Pancreatitis type: other Acute pancreatitis complication: no infection or necrosis Qualified Code(s): K85.80 - Other acute pancreatitis without necrosis or infection (2) Sinus bradycardia Current Visit: Yes Status: Resolved Assessment and plan: Resolved. (3) DVT prophylaxis Current Visit: Yes Status: Resolved Assessment and plan: Lovenox SQ daily (4) Leukocytosis Current Visit: Yes Status: Resolved Assessment and plan: resolved. Qualifiers: Leukocytosis type: unspecified Qualified Code(s): D72.829 - Elevated white blood cell count, unspecified - Time Spent With Patient less than 15 minutes - Subjective Interval history: Patient was seen and assessed at 1140 AM. Pt appears to be significantly better today, states that he feels better and has been eating well. Continues to deny abd pain, n/v/d, and states that he is ready to go home. He denies chest pain or shortness of breath. No headache or blurred vision. - Constitutional Vitals: Temp Pulse Resp BP Pulse Ox 97.9 F 73 18 126/85 91 10/30/17 07:13 10/30/17 07:13 10/30/17 07:13 10/30/17 07:13 10/30/17 07:13 General appearance: Present: cooperative, A&O X 3, pleasant, no acute distress, answers questions appropriately - Head Head exam: Present: atraumatic, normal inspection, normocephalic - Eye Eye exam: Present: normal appearance, conjuntiva pink, sclera anicteric - Neck Neck exam general surgery: Present: normal inspection, supple, trachea midline. Absent: lymphadenopathy, tenderness - Respiratory Respiratory exam: Present: CTAB. Absent: accessory muscle use, chest wall tenderness, rales, respiratory distress, rhonchi, wheezes - Cardiovascular Cardiovascular exam: Present: RRR, +S1, +S2. Absent: diastolic murmur, gallop, rubs, systolic murmur - GI/Abdominal GI/Abdominal exam: Present: normal bowel sounds, soft, no peritoneal signs. Absent: distended, hepatomegaly, tenderness - Extremities Exam Extremities exam: Present: normal capillary refill, normal inspection, warm, radial pulses palpable and symmetrical. Absent: calf tenderness, cyanotic, pedal edema, tenderness - Neurological Exam Neurological exam: Present: alert, oriented X3, no focal deficits, strengths equal and symetr throughout. Absent: altered, facial droop, speech deficit - Skin Skin exam: Present: dry, intact, normal color, warm. Absent: rash Internal Medicine: Result - Labs CBC & Chem 7: 10/30/17 05:31 10/30/17 05:31 Labs: Short CBC 10/30/17 Range/Units 05:31 WBC 8.2 (4.3-11.1) K/mcL Hgb 12.6 L (12.9-16.9) g/dL Hct 38.2 (37.5-50.1) % Plt Count 210 (140-400) K/mcL Neutrophils # 4.9 (1.6-8.9) K/mcL BMP 10/30/17 05:31 Sodium 137 Potassium 3.2 L Chloride 104 Carbon Dioxide 28 BUN 3 L Creatinine 0.70 Glucose 90 Calcium 8.0 L Liver Function 10/29/17 10/30/17 Range/Units 12:11 05:31 AST 23 (13-39) Units/L ALT 92 H 128 H (7-52) Units/L Consult Discharge Plan - Plan Additional Instructions: Follow-up with her primary care provider in the next 7-10 days for a follow-up visit. Return to work after cleared by your primary care provider. Take your medications as directed. Return to normal activities as tolerated. Return to your normal diet as tolerated Return to the emergency department as needed for any other problems or concerns , or if your symptoms return or worsen. Referrals: NONE,PCP [Primary Care Provider] -
[2017-10-31 08:19] LABS: ANA IgG by ELISA NONE DETECTED (None Detected); Immunoglobulin G Subclass 1 281 mg/dL (240-1118); Immunoglobulin G Subclass 2 262 mg/dL (124-549); Immunoglobulin G Subclass 3 27 mg/dL (21-134); Immunoglobulin G Subclass 4 61 mg/dL (1-123)
== END 2017-10-30 12:15 | disposition home or self-care (01) | DRG 282 ==
LOC: 3BNU 13:23 → EMEROO 13:23 → 3BNU 19:57
PROVIDERS: ADMIT Internal Medicine; ATTEND Internal Medicine